=== PATIENT | male | born 1980 | race Caucasian/White ===

== ENCOUNTER 2023-07-08 10:53 | Emergency (ER) | payer BC ==
[~2023-07-08] VITALS: Ht 182.9 cm; Wt 108.9 kg
[2023-07-08 11:00] VITALS: BP_SYST 154; PULSE 81; RESP 18; TEMP 97.7; O2SAT 97
[2023-07-08] MEDS ORDERED: ONDANSETRON HCL 4 MG/2 ML VIAL IVP ONE (11:00)
[2023-07-08] MEDS ORDERED: NACL 0.9% 1,000 ML IV ONE (11:00)
[2023-07-08 11:25] LABS: BASOPHILS # (AUTO) 0.1 K/uL (0.0-0.2); BASOPHILS % (AUTO) 0.9 % (0.0-2.0); EOSINOPHILS # (AUTO) 0.1 K/uL (0.0-0.4); HEMATOCRIT 46.6 % (36-54); HEMOGLOBIN 15.7 g/dL (14.0-18.0); LYMPHOCYTES # (AUTO) 2.1 K/uL (1.0-5.5); LYMPHOCYTES % (AUTO) 32.5 % (20.5-51.5); MEAN CORPUSCULAR HEMOGLOBIN 31 pg (27-31); MEAN CORPUSCULAR HGB CONC 34 % (32-36); MEAN CORPUSCULAR VOLUME 92 fL (79.0-98.0); MONOCYTES # (AUTO) 0.4 K/uL (0.0-1.0); NEUTROPHILS # (AUTO) 3.8 K/uL (1.8-7.7); NEUTROPHILS % (AUTO) 58.6 % (40.0-70.0); PLATELET COUNT (AUTO) 262 K/uL (130-430); RED BLOOD CELL COUNT(AUTO) 5.07 MIL/uL (4.2-6.2); RED CELL DISTRIBUTION WIDTH 13.5 % (9.0-15.0); WHITE BLOOD COUNT (AUTO) 6.5 K/uL (4.8-10.8)
[2023-07-08 11:34] LABS: CALCIUM 9.6 mg/dL (8.4-11.0); CREATININE 1.15 mg/dL (0.55-1.30); POTASSIUM 3.6 mmol/L (3.5-5.1)
[2023-07-08 11:38] LABS: ALBUMIN 4.1 g/dL (3.4-4.8); TOTAL BILIRUBIN 0.7 mg/dL (0.0-1.0); TOTAL PROTEIN, SERUM 8.1 g/dL (6.4-8.3)
[2023-07-08] MEDS ORDERED: KETOROLAC TROMETHAMINE 30 MG VIAL IVP ONE (14:00)
[2023-07-08] MEDS ORDERED: ONDA-8 TL (14:04)
[2023-07-08 14:42] VITALS: BP_SYST 142; PULSE 68; RESP 17; TEMP 97.4; O2SAT 95
== END 2023-07-08 14:40 | disposition home or self-care (01) ==
LOC: SED 10:53
DX: R10.13 Epigastric pain (principal); R07.9 Chest pain, unspecified; R11.2 Nausea with vomiting, unspecified; Z79.899 Other long term (current) drug therapy
CPT/HCPCS: 99285; 74177; 96374; 96361; 96375; 80053; 83690; 85025; 84484; 36415; 93005; 76376; J1885; J2405; Q9967; J7030

== ENCOUNTER 2023-08-22 06:19 | Emergency (ER) | payer BC ==
[~2023-08-22] VITALS: Ht 182.9 cm; Wt 106.6 kg
[~2023-08-22 06:19] MED LIST: ONDA-8 TL
[2023-08-22 06:50] VITALS: BP_SYST 157; PULSE 78; RESP 16; TEMP 97.8; O2SAT 98
[2023-08-22 07:08] LABS: BASOPHILS % (AUTO) 0.8 % (0.0-2.0); EOSINOPHILS # (AUTO) 0.1 K/uL (0.0-0.4); EOSINOPHILS % (AUTO) 2.2 % (0.0-4.0); HEMATOCRIT 44.5 % (36-54); HEMOGLOBIN 15.1 g/dL (14.0-18.0); LYMPHOCYTES # (AUTO) 1.8 K/uL (1.0-5.5); LYMPHOCYTES % (AUTO) 32.8 % (20.5-51.5); MEAN CORPUSCULAR HEMOGLOBIN 31 pg (27-31); MEAN CORPUSCULAR HGB CONC 34 % (32-36); MEAN CORPUSCULAR VOLUME 92 fL (79.0-98.0); MONOCYTES # (AUTO) 0.4 K/uL (0.0-1.0); MONOCYTES % (AUTO) 6.7 % (1.7-9.3); NEUTROPHILS # (AUTO) 3.2 K/uL (1.8-7.7); NEUTROPHILS % (AUTO) 57.5 % (40.0-70.0); PLATELET COUNT (AUTO) 253 K/uL (130-430); RED BLOOD CELL COUNT(AUTO) 4.86 MIL/uL (4.2-6.2); RED CELL DISTRIBUTION WIDTH 13.5 % (9.0-15.0); WHITE BLOOD COUNT (AUTO) 5.5 K/uL (4.8-10.8)
[2023-08-22 07:19] LABS: ANION GAP 6 (5-15); CALCIUM 9.4 mg/dL (8.4-11.0); CARBON DIOXIDE 29 mmol/L (23-29); CHLORIDE 103 mmol/L (98-107); CREATININE 1.04 mg/dL (0.55-1.30); GFR AFRICAN AMERICAN 100 mL/min (>90); GLUCOSE 120 mg/dL (74-106); POTASSIUM 4.1 mmol/L (3.5-5.1); SODIUM SERUM 138 mmol/L (136-145); UREA NITROGEN, BLOOD 16 mg/dL (8-21)
[2023-08-22 07:24] LABS: GFR NON AFRICAN-AMERICAN 83 mL/min (>90)
[2023-08-22 07:27] LABS: ALANINE AMINOTRANSFERASE 45 U/L (12-78); ASPARTATE AMINOTRANSFERASE 20 U/L (10-37); BILIRUBIN,DIRECT 0.1 mg/dL (0.0-0.3); TOTAL BILIRUBIN 0.5 mg/dL (0.0-1.0)
[2023-08-22] MEDS ORDERED: PRED20TA PO (07:36)
[2023-08-22] MEDS ORDERED: ACYC-133 PO (07:36)
[2023-08-22 07:55] VITALS: BP_SYST 130; PULSE 82; RESP 18; TEMP 97.8; O2SAT 98
== END 2023-08-22 07:55 | disposition home or self-care (01) ==
LOC: SED 06:19
DX: G51.0 Bell's palsy (principal)
CPT/HCPCS: 36415; 70450-TC; 76376; 80048; 80076; 84484; 85025; 99284